=== PATIENT | female | born 1950 | race Native Hawaiian/Other Pacific Islander ===

== ENCOUNTER 2019-01-08 08:35 | Outpatient (CLI) | payer BC, OTHER | END 2019-01-08 23:59 | disposition home or self-care (01) | LOC: NM 08:35 | DX: R07.89 Other chest pain (principal) | CPT/HCPCS: A9500; J2785 ==

== ENCOUNTER 2019-11-18 22:28 | Emergency (ER) | payer OTHER ==
[~2019-11-18] VITALS: Ht 165.1 cm; Wt 72.6 kg
[2019-11-19 01:31] VITALS: BP 158/76; TEMP 98.2
== END 2019-11-19 01:31 | disposition home or self-care (01) ==
LOC: ED 22:28
PROC: 2W39X1Z Immobilization of Left Upper Extremity using Splint (ICD-10-PCS; principal; 2019-11-18)
DX: S42.295A Other nondisplaced fracture of upper end of left humerus, initial encounter for closed fracture (principal); W01.0XXA Fall on same level from slipping, tripping and stumbling without subsequent striking against object, initial encounter; Y92.89 Other specified places as the place of occurrence of the external cause
CPT/HCPCS: 96372; 99283; J1885; J2270

== ENCOUNTER 2021-09-03 08:19 | Outpatient (CLI) | payer OTHER | END 2021-09-03 20:24 | disposition home or self-care (01) | LOC: CT 08:19 | PROVIDERS: ATTEND Internal Medicine | DX: R10.84 Generalized abdominal pain (principal) | CPT/HCPCS: 36415; 82565; 84520; Q9963 ==

== ENCOUNTER 2021-09-30 11:08 | Outpatient (CLI) | payer OTHER | END 2021-09-30 21:17 | disposition home or self-care (01) | LOC: US 11:08 | PROVIDERS: ATTEND Internal Medicine | DX: R42 Dizziness and giddiness (principal); R04.0 Epistaxis; R51.9 Headache, unspecified; R25.1 Tremor, unspecified ==

== ENCOUNTER 2021-10-06 10:21 | Outpatient (CLI) | payer OTHER | END 2021-10-06 19:11 | disposition home or self-care (01) | LOC: MRI 10:21 | PROVIDERS: ATTEND Internal Medicine | DX: R42 Dizziness and giddiness (principal); R04.0 Epistaxis; R51.9 Headache, unspecified; G25.2 Other specified forms of tremor ==

== ENCOUNTER 2021-11-25 14:51 | Outpatient (CLI) | payer OTHER | END 2021-11-25 19:09 | disposition home or self-care (01) | LOC: MAMMO 14:51 | PROVIDERS: ATTEND Internal Medicine | DX: Z12.31 Encounter for screening mammogram for malignant neoplasm of breast (principal) ==

== ENCOUNTER 2021-12-27 09:59 | Outpatient (CLI) | payer OTHER | END 2021-12-27 19:31 | disposition home or self-care (01) | LOC: MAMMO 09:59 | PROVIDERS: ATTEND Internal Medicine | DX: N64.59 Other signs and symptoms in breast (principal) ==

== ENCOUNTER 2022-01-05 08:42 | Outpatient (CLI) | payer OTHER ==
[~2022-01-05] VITALS: Ht 157.5 cm; Wt 49.9 kg
== END 2022-01-05 19:34 | disposition home or self-care (01) ==
LOC: US 08:42
PROVIDERS: ATTEND Nurse Practitioner Family
DX: R92.8 Other abnormal and inconclusive findings on diagnostic imaging of breast (principal)

== ENCOUNTER 2022-05-03 12:54 | Outpatient (CLI) | payer OTHER | END 2022-05-03 19:04 | disposition home or self-care (01) | LOC: RAD 12:54 | PROVIDERS: ATTEND Internal Medicine | DX: M54.2 Cervicalgia (principal); M54.6 Pain in thoracic spine; R07.81 Pleurodynia; W19.XXXA Unspecified fall, initial encounter ==